=== PATIENT | female | born 1950 | race Two or more races ===

== ENCOUNTER → 2024-06-08 | Day surgery (SDC) | payer BC, OTHER ==
[~2024-06-08] VITALS: Ht 170.2 cm; Wt 73.9 kg
[~2024-06-08] MED LIST: BACL20TA PO; CEFEPIME 1GM/ 50ML 50 ML IV ONE; ENAL1TAB46 PO; EPINEPHrine HCL 1 MG/1 ML AMP ONE; EZET10TA22 PO; HYDROmorphone HCL 2 MG/ML VL/or syr IV PRN; KETOROLAC TROMETH 30 MG/ML 1ML VIAL ONE; METO25TA93 PO; MIDAZOLAM HCL 2MG/2ML 2ml VIAL (1mg/ml) ONE; MORPHINE SULF PF 5 MG/10 ML VIAL ONE; MULT-1018 OR; ONDANSETRON HCL 4 MG/2 ML VIAL IV ONE; PHENYLEPHRINE HCL 10 MG/ML VL ONE; ROPIVACAINE 0.5% (5MG/ML) 20ML AMPULE IJ ONE; TRANEXAMIC ACID 0 ML ONE; VANCOMYCIN HCL 1000 MG VL ONE; ceFAZolin 2 GM/D5W100ml 100 ML IV ONE; fentaNYL CITRATE 100 MCG/2 ML VL ONE
== END | disposition home or self-care (01) ==
LOC: SUR 08:01 → EDUNIT# 08:45
PROVIDERS: ATTEND Orthopaedic Surgery
DX: M16.11 Unilateral primary osteoarthritis, right hip (principal); Z53.8 Procedure and treatment not carried out for other reasons
CPT/HCPCS: 82962; 86850; 86900; 86901; J0171; J0692; J2795; J3370; J1885; J2250